=== PATIENT | male | born 1970 | race Caucasian/White ===

== ENCOUNTER 2020-03-04 14:22 | Emergency (ER) | payer SELFPAY ==
--- NOTE | 2020-03-04 14:37 | EDM.PDOC ---
<Marcos Geller - Last Filed: 03/04/20 18:15> ED HPI GENERAL MEDICAL PROBLEM - General Chief Complaint: Respiratory Problem Stated Complaint: COUGHING,COLD SYMPTOMS Time Seen by Provider: 03/04/20 14:33 - Related Data Allergies Allergy/AdvReac Type Severity Reaction Status Date / Time No Known Allergies Allergy Verified 03/04/20 14:50 Home Meds: Home Meds lisinopriL [Lisinopril] 10 mg PO DAILY 30 Days #30 tablet 03/04/20 [Rx] ED ROS GENERAL - Review of Systems Review Of Systems: See Below ED EXAM, GENERAL - Physical Exam Exam: See Below General Appearance: Alert Departure - Departure Time of Disposition: 17:31 Disposition: Home, Self-Care 01 Condition: Good Clinical Impression: COVID-19 - Discharge Information *PRESCRIPTION DRUG MONITORING PROGRAM REVIEWED*: No *COPY OF PRESCRIPTION DRUG MONITORING REPORT IN PATIENT ADELA: No Prescriptions: lisinopriL [Lisinopril] 10 mg PO DAILY 30 Days #30 tablet Instructions: COVID-19 Frequently Asked Questions, Prevent the Spread of COVID- 19 if You Are Sick - [facility] Referrals: PCP,None [Primary Care Provider] - Forms: ED Department Discharge Additional Instructions: The following information is given to patients seen in the emergency department who are being discharged to home. This information is to outline your options for follow-up care. We provide all patients seen in our emergency department with a follow-up referral. The need for follow-up, as well as the timing and circumstances, are variable depending upon the specifics of your emergency department visit. If you don't have a primary care physician on staff, we will provide you with a referral. We always advise you to contact your personal physician following an emergency department visit to inform them of the circumstance of the visit and for follow-up with them and/or the need for any referrals to a consulting specialist. The emergency department will also refer you to a specialist when appropriate. This referral assures that you have the opportunity for follow-up care with a specialist. All of these measure are taken in an effort to provide you with optimal care, which includes your follow-up. Under all circumstances we always encourage you to contact your private physician who remains a resource for coordinating your care. When calling for follow-up care, please make the office aware that this follow-up is from your recent emergency room visit. If for any reason you are refused follow-up, please contact the [facility] Emergency Department at and asked to speak to the emergency department charge nurse. Please follow up with your primary care physician. If you do not have a primary care physician, see below: [facility] [address] [place] [id number] [facility] [address] [place] [address] Please follow-up with your primary care physician. If you have any difficulty breathing tolerating full liquid please return to the ED. Please continue taking your blood pressure medications we provided you with a refill. <Lela Barajas E - Last Filed: 03/17/20 13:46> ED HPI GENERAL MEDICAL PROBLEM - General Source of Information: Reports: Patient History Limitations: Reports: No Limitations - History of Present Illness INITIAL COMMENTS - FREE TEXT/NARRATIVE: HISTORY AND PHYSICAL: History of present illness: Patient is a 49-year-old male who presents to the emergency room with complaints of shortness of breath, cough, body aches and sore throat. He states he has generally felt unwell for the past 2 to 3 weeks, he did have a COVID-19 screening done approximately a week ago. Most recently he was around his nephew who tested positive for COVID-19. He states he now has productive cough, shortness of breath and sore throat over the past 2 to 3 days. He states he is "coughing so hard it has pink stuff in it" he denies any austen blood. Review of systems: As per history of present illness and below otherwise all systems reviewed and negative. Past medical history: As per history of present illness and as reviewed below otherwise noncontributory. Surgical history: As per history of present illness and as reviewed below otherwise noncontributory. Social history: See social history for further information Family history: As per history of present illness and as reviewed below otherwise noncontributory. Physical exam: General: Well developed and well nourished. Alert and orientated x 3. Nontoxic in appearance and in no acute distress. Vital signs are stable and have been reviewed by me. Nursing notes were reviewed. HEENT: Atraumatic, normocephalic, pupils equal and reactive bilaterally, negative for conjunctival pallor or scleral icterus, mucous membranes moist, TMs normal bilaterally, throat clear, neck supple, nontender, trachea midline. No drooling or trismus noted. No meningeal signs. No hot potato voice noted. Lungs: Clear to auscultation, breath sounds equal bilaterally, chest nontender. Normal work of breathing, no accessory muscles used. Heart: S1S2, regular rate and rhythm without overt murmur Abdomen: Soft, nondistended, nontender. Negative for masses or hepatosplenomegaly. Negative for costovertebral tenderness. Pelvis: Stable nontender. Genitourinary: Deferred. Rectal: Deferred. Skin: Intact, warm, dry. No lesions or rashes noted. Hematologic: No petechiae or purpra. Mucosa appropriate color and normal nail bed color and refill. Extremities: Atraumatic, moves all extremities per self without difficulty or deficits, negative for cords or calf pain. Neurovascular unremarkable. Neuro: Awake, alert, oriented. Cranial nerves II through XII unremarkable. Ce rebellum unremarkable. Motor and sensory unremarkable throughout. Exam nonfocal. Psychiatric: Mood and affect are appropriate. Normal thought process. Answering questions appropriately. Notes: Chest x-ray shows an enlarged heart. Prominent lung markings bilaterally could be due to edema or pneumonitis including viral pneumonia. I have talked with the patient about today's findings, in addition to providing specific details for plan of care. Reassessment at the time of disposition demonstrates that the patient is in no acute distress. The patient is stable for discharge, counseling was provided and we discussed in great detail signs and symptoms that would prompt them to return to the Emergency Department. Medication, follow up and supportive care measures were reviewed and discussed. Voices understanding and is agreeable to plan of care. Denies any further questions or concerns at this time. Diagnostics: CBC, CMP, D.Dimer, troponin, EKG, chest x-ray, COVID-19 Impression: COVID-19 Definitive disposition and diagnosis as appropriate pending reevaluation and review of above. generalized Pain Score (Numeric/FACES): 6 Course - Vital Signs Last Recorded V/S: Last Vital Signs Temp 97.7 F 03/04/20 14:40 Pulse 87 03/04/20 17:50 Resp 18 03/04/20 17:50 BP 159/123 H 03/04/20 17:50 Pulse Ox 96 03/04/20 17:50 - Orders/Labs/Meds Labs: Laboratory Tests 03/04/20 03/04/20 03/04/20 Range/Units 15:27 15:27 15:27 WBC 7.01 (4.0-11.0) K/uL RBC 5.68 (4.50-5.90) M/uL Hgb 17.4 H (13.0-17.0) g/dL Hct 52.8 H (38.0-50.0) % MCV 93.0 (80.0-98.0) fL MCH 30.6 (27.0-32.0) pg MCHC 33.0 (31.0-37.0) g/dL RDW Std Deviation 45.5 (28.0-62.0) fl RDW Coeff of Mauricio 13 (11.0-15.0) % Plt Count 211 (150-400) K/uL MPV 10.70 (7.40-12.00) fL Neut % (Auto) 67.7 (48.0-80.0) % Lymph % (Auto) 23.0 (16.0-40.0) % [place] % (Auto) 7.3 (0.0-15.0) % Eos % (Auto) 1.3 (0.0-7.0) % Baso % (Auto) 0.7 (0.0-1.5) % Neut # (Auto) 4.8 (1.4-5.7) K/uL Lymph # (Auto) 1.6 (0.6-2.4) K/uL [place] # (Auto) 0.5 (0.0-0.8) K/uL Eos # (Auto) 0.1 (0.0-0.7) K/uL Baso # (Auto) 0.1 (0.0-0.1) K/uL Nucleated RBC % 0.0 /100WBC Nucleated RBCs # 0 K/uL D-Dimer, Quantitative 0.39 (0.0-0.50) mg/L FEU Sodium 140 (136-148) mmol/L Potassium 4.9 (3.5-5.1) mmol/L Chloride 104 (98-107) mmol/L Carbon Dioxide 28.3 (21.0-32.0) mmol/L BUN 19 H (7.0-18.0) mg/dL Creatinine 1.5 H (0.8-1.3) mg/dL Est Cr Clr Drug Dosing 60.23 mL/min Estimated GFR (MDRD) 49.9 ml/min Glucose 98 (74-106) mg/dL Calcium 8.8 (8.5-10.1) mg/dL Total Bilirubin 1.3 H (0.2-1.0) mg/dL AST 36 (15-37) IU/L ALT 45 (14-63) IU/L Alkaline Phosphatase 96 (46-116) U/L Troponin I < 0.050 (0.000-0.056) ng/mL Total Protein 7.4 (6.4-8.2) g/dL Albumin 3.1 L (3.4-5.0) g/dL Globulin 4.3 H (2.6-4.0) g/dL Albumin/Globulin Ratio 0.7 L (0.9-1.6) SARS-CoV-2 (PCR) (NOT DETECT) SARS CoV-2 RNA Rapid TRISTAN (NEGATIVE) 03/04/20 03/04/20 Range/Units 15:50 15:50 WBC (4.0-11.0) K/uL RBC (4.50-5.90) M/uL Hgb (13.0-17.0) g/dL Hct (38.0-50.0) % MCV (80.0-98.0) fL MCH (27.0-32.0) pg MCHC (31.0-37.0) g/dL RDW Std Deviation (28.0-62.0) fl RDW Coeff of Mauricio (11.0-15.0) % Plt Count (150-400) K/uL MPV (7.40-12.00) fL Neut % (Auto) (48.0-80.0) % Lymph % (Auto) (16.0-40.0) % [place] % (Auto) (0.0-15.0) % Eos % (Auto) (0.0-7.0) % Baso % (Auto) (0.0-1.5) % Neut # (Auto) (1.4-5.7) K/uL Lymph # (Auto) (0.6-2.4) K/uL [place] # (Auto) (0.0-0.8) K/uL Eos # (Auto) (0.0-0.7) K/uL Baso # (Auto) (0.0-0.1) K/uL Nucleated RBC % /100WBC Nucleated RBCs # K/uL D-Dimer, Quantitative (0.0-0.50) mg/L FEU Sodium (136-148) mmol/L Potassium (3.5-5.1) mmol/L Chloride (98-107) mmol/L Carbon Dioxide (21.0-32.0) mmol/L BUN (7.0-18.0) mg/dL Creatinine (0.8-1.3) mg/dL Est Cr Clr Drug Dosing mL/min Estimated GFR (MDRD) ml/min Glucose (74-106) mg/dL Calcium (8.5-10.1) mg/dL Total Bilirubin (0.2-1.0) mg/dL AST (15-37) IU/L ALT (14-63) IU/L Alkaline Phosphatase (46-116) U/L Troponin I (0.000-0.056) ng/mL Total Protein (6.4-8.2) g/dL Albumin (3.4-5.0) g/dL Globulin (2.6-4.0) g/dL Albumin/Globulin Ratio (0.9-1.6) SARS-CoV-2 (PCR) DETECTED H (NOT DETECT) SARS CoV-2 RNA Rapid TRISTAN POSITIVE H (NEGATIVE) Meds: Medications Discontinued Medications Generic Name Dose Route Start Last Admin Trade Name Freq PRN Reason Stop Dose Admin Aspirin 324 mg 03/04/20 14:55 03/04/20 15:07 Aspirin PO 03/04/20 14:56 324 mg ONETIME ONE Administration
[2020-03-04] MEDS ORDERED: Aspirin 81 MG Tab.Chew PO ONE (14:55)
--- NOTE | 2020-03-04 15:08 | PCM.SN.2 ---
- Free Text/Narrative Note: EKG Time 304pm Rate 84 NSR no MARTINA
--- NOTE | 2020-03-04 16:13 | CR ---
INDICATION: Chest pain and dyspnea COMPARISON: None TECHNIQUE: Single-view portable AP upright study FINDINGS: TUBES AND LINES: None. HEART AND MEDIASTINUM: The heart is mildly enlarged. LUNGS AND PLEURAL SPACES: Prominent lung markings bilaterally could be related to edema or could be due to pneumonitis including viral pneumonitis.No pleural effusion or pneumothorax. OSSEOUS STRUCTURES: Age-appropriate appearance. No acute focal finding. IMPRESSION: Enlarged heart. Prominent lung markings bilaterally could be due to edema or pneumonitis including viral pneumonia. Dictated by Dereck Levy MD @ Mar 04 2020 4:10PM Signed by Dr. Dereck Levy @ Mar 04 2020 4:11PM
[2020-03-04 16:16] LABS: BLOOD UREA NITROGEN,BUN 19 mg/dL (7.0-18.0); CARBON DIOXIDE,CO2 28.3 mmol/L (21.0-32.0); CHLORIDE,CL 104 mmol/L (98-107); GLUCOSE RANDOM 98 mg/dL (74-106); POTASSIUM,K 4.9 mmol/L (3.5-5.1); SODIUM,NA 140 mmol/L (136-148)
== END 2020-03-04 17:50 | disposition home or self-care (01) ==
LOC: MW.ED 14:22
DX: U07.1 COVID-19 (principal); Z79.899 Other long term (current) drug therapy
CPT/HCPCS: 36415; 71045; 80053; 84484; 85025; 85379; 87635; 93005; 99285; A9270; 93010; 99284; U0002

== ENCOUNTER 2020-04-02 14:54 | Emergency (ER) | payer SELFPAY ==
[2020-04-02] MEDS ORDERED: Sodium Chloride 0.9% 10 ML Syringe FLUSH PRN (14:56)
[2020-04-02] MEDS ORDERED: Sodium Chloride 0.9% 2.5 ML Syringe FLUSH PRN (14:56)
[2020-04-02] MEDS ORDERED: Furosemide 40 MG/4 ML VIAL IVPUSH ONE (15:30)
[2020-04-02 15:42] LABS: CARBON DIOXIDE,CO2 28.5 mmol/L (21.0-32.0)
[2020-04-02] MEDS ORDERED: Aspirin 325 MG Tab PO ONE (15:50)
--- NOTE | 2020-04-02 15:51 | CR ---
INDICATION: Chest pain and shortness of breath TECHNIQUE: Chest 1 views COMPARISON: March 04, 2020 FINDINGS: Cardiovascular and mediastinum: Stable cardiomegaly with new central pulmonary vascular congestion. Lungs and pleural spaces: Lungs are clear. No sign of infiltrate or mass. No sign of pleural effusion. No pneumothorax. Bones and soft tissues: No significant findings. IMPRESSION: CHF is suggested with moderate central edematous changes. Dictated by Baldev Butcher MD @ Apr 02 2020 3:47PM Signed by Dr. Baldev Butcher @ Apr 02 2020 3:49PM
--- NOTE | 2020-04-02 16:03 | PCM.SN.2 ---
- Free Text/Narrative Note: EGD done at 3:20 PM. Sinus rhythm heart rate 97 axis 27 IA 174 QT 458 transition R wave in the precordium compared to 03/04/2020 no change impression no acute injury
[2020-04-02] MEDS ORDERED: Enoxaparin 150 MG/1 ML Syringe SUBCUT ONE (16:12)
[2020-04-02] MEDS ORDERED: Heparin Sodium 5,000 Units/ML Vial IVPUSH ONE (16:16)
[2020-04-02] MEDS ORDERED: Heparin Sodium 5,000 Units/ML Vial ONE (16:19)
[2020-04-02] MEDS ORDERED: Heparin Sodium/0.45% NaCl 500 ML ONE (16:19)
--- NOTE | 2020-04-02 16:24 | EDM.PDOC ---
ED HPI GENERAL MEDICAL PROBLEM - General Chief Complaint: Abdominal Pain Stated Complaint: SOB Time Seen by Provider: 04/02/20 14:55 Source of Information: Reports: Patient History Limitations: Reports: No Limitations - History of Present Illness INITIAL COMMENTS - FREE TEXT/NARRATIVE: HISTORY AND PHYSICAL: History of present illness: Patient is a 50-year-old male who presents emergency room today from his primary care provider's office for concern of shortness of breath and bilateral lower leg edema. Patient states he also has some abdominal fullness sensation and some epigastric abdominal pain. I did speak to patient's primary care provider who sent him to the emergency room for further evaluation after her concern for possible surgical abdomen. Upon arrival, patient is speaking 2-3 word sentences with difficulties breathing. He does appear uncomfortable with breathing. States that 1 month ago he was diagnosed with Covid but has been clear by the state over the past several weeks after being quarantined at home. Patient states he did have shortness of breath with Covid but was having improvement of his symptoms and then over the course of the past 3 days has noticed bilateral lower extremity edema, worsening shortness of breath, and abdominal pain/distention. Patient states that he is unable to lay back without getting a "panic attack " and has not been able to lay back to sleep. Patient denies any health history and states he is not on any medications. Patient denies fever, chills, chest pain, or cough. Denies headache, neck stiff ness, change in vision, syncope, or near syncope. Denies nausea, vomiting, diarrhea, constipation, or dysuria. Has not noted any blood in urine or stool. Patient has been eating and drinking appropriately. Review of systems: As per history of present illness and below otherwise all systems reviewed and negative. Past medical history: As per history of present illness and as reviewed below otherwise noncon tributory. Surgical history: As per history of present illness and as reviewed below otherwise noncontributory. Social history: See social history for further information Family history: As per history of present illness and as reviewed below otherwise noncontributory. Physical exam: General: Patient is alert, oriented, and in no acute distress. Patient sitting on exam table, speaking 2-3 words with breathlessness. HEENT: Atraumatic, normocephalic, pupils equal and reactive bilaterally, negative for conjunctival pallor or scleral icterus, mucous membranes moist, TMs normal bilaterally, throat clear, neck supple, nontender, trachea midline. No drooling or trismus noted. No meningeal signs. No hot potato voice noted. Lungs: Patient speaking 2-3 words with breathlessness, no wheezing or stridor, coarse crackles heard throughout all lung valdes, using accessory muscle for inspiration. Heart: S1S2, regular rate and rhythm without overt murmur Abdomen: Soft, nondistended, nontender. Negative for masses or hepatosplenomegaly. Negative for costovertebral tenderness. Pelvis: Stable nontender. Genitourinary: Deferred. Rectal: Deferred. Skin: Intact, warm, dry. No lesions or rashes noted. Extremities: 2+ bilateral pitting edema to the knees. Otherwise, atraumatic, negative for cords or calf pain. Neurovascular unremarkable. Neuro: Awake, alert, oriented. Cranial nerves II through XII unremarkable. Cerebellum unremarkable. Motor and sensory unremarkable throughout. Exam nonfocal. Notes: Dr. Huerta verbally involved in patient care. See his official dictation for EKG interpretation. Patient is mildly tachycardic at 103 on exam with an increased respiratory rate of 22 but maintaining oxygen at 97%. He is speaking 2-3 word sentences with breathlessness and does appear uncomfortable with respiratory distress. I did call down to respiratory therapy to get BiPAP initiated immediately upon arrival. On reexamination of patient after BiPAP was initiated, he is much more comfo rtable stating that his symptoms are drastically improved. I did receive a call from the lab that they would not be able to complete the D- dimer at this time as they are fixing the analyzer. The asset availability leader is unsure how long the analyzer for ddimer will be down. However, patient's troponin did come back elevated and transfer arranged for NSTEMI with new onset CHF/acute respiratory failure prior to ddimer resulted. Dr. Alarcon, [facility], consulted on patent and accepting of transfer. Flight arranged. Voices understanding and is agreeable to plan of care. Denies any further questions or concerns at this time. Ddimer was noted to be elevated after patient was transferred to [facility]. I and nursing staff did call and speak to [facility], Dr. Neal's nurse and will fax the results to them in regards to the elevated ddimer. [facility] is made aware of elevated ddimer lab here today. Diagnostics: EKG, CBC, CMP, UA, chest x-ray, troponin, D-dimer, lipase, BNP, Therapeutics: Bipap, Lasix, Heparin GTT/bolus, ASA Impression: NSTEMI Acute respiratory failure Pulmonary edema Plan: Transfer to [facility] to Dr. Alarcon via Flight Definitive disposition and diagnosis as appropriate pending reevaluation and review of above. abdominal Pain Score (Numeric/FACES): 10 - Related Data Allergies Allergy/AdvReac Type Severity Reaction Status Date / Time No Known Allergies Allergy Verified 04/02/20 15:10 Home Meds: Home Meds lisinopriL [Lisinopril] 10 mg PO DAILY 30 Days #30 tablet 03/04/20 [Rx] Past Medical History Cardiovascular History: Reports: Hypertension Genitourinary History: Reports: None - Infectious Disease History Infectious Disease History: Reports: Chicken Pox - Past Surgical History Cardiovascular Surgical History: Reports: None Male Surgical History: Reports: Vasectomy Social & Family History - Family History Family Medical History: Unobtainable - Tobacco Use Tobacco Use Status *Q: Former Tobacco User Used Tobacco, but Quit: Yes Month/Year Tobacco Last Used: "3months ago" - Caffeine Use Caffeine Use: Reports: None - Recreational Drug Use Recreational Drug Use: No ED ROS GENERAL - Review of Systems Review Of Systems: Comprehensive ROS is negative, except as noted in HPI. ED EXAM, GENERAL - Physical Exam Exam: See Below (see dictation) Course - Vital Signs Last Recorded V/S: Last Vital Signs Temp 96.5 F L 04/02/20 15:01 Pulse 101 H 04/02/20 17:00 Resp 22 H 04/02/20 15:01 BP 161/134 H 04/02/20 17:00 Pulse Ox 98 04/02/20 17:00 - Orders/Labs/Meds Orders: Active Orders 24 hr Category Date Time Status UA RFX SANIA AND CULT IF INDIC [URIN] Stat Lab 04/02/20 14:56 Ordered Saline Lock Insert [OM.PC] Stat Oth 04/02/20 14:56 Ordered Labs: Laboratory Tests 04/02/20 04/02/20 04/02/20 Range/Units 15:12 15:12 15:12 WBC 10.23 (4.0-11.0) K/uL RBC 5.61 (4.50-5.90) M/uL Hgb 17.3 H (13.0-17.0) g/dL Hct 52.6 H (38.0-50.0) % MCV 93.8 (80.0-98.0) fL MCH 30.8 (27.0-32.0) pg MCHC 32.9 (31.0-37.0) g/dL RDW Std Deviation 47.3 (28.0-62.0) fl RDW Coeff of Mauricio 14 (11.0-15.0) % Plt Count 273 (150-400) K/uL MPV 10.80 (7.40-12.00) fL Neut % (Auto) 62.3 (48.0-80.0) % Lymph % (Auto) 28.6 (16.0-40.0) % [place] % (Auto) 6.2 (0.0-15.0) % Eos % (Auto) 2.2 (0.0-7.0) % Baso % (Auto) 0.7 (0.0-1.5) % Neut # (Auto) 6.4 H (1.4-5.7) K/uL Lymph # (Auto) 2.9 H (0.6-2.4) K/uL [place] # (Auto) 0.6 (0.0-0.8) K/uL Eos # (Auto) 0.2 (0.0-0.7) K/uL Baso # (Auto) 0.1 (0.0-0.1) K/uL Nucleated RBC % 0.0 /100WBC Nucleated RBCs # 0 K/uL APTT (18.6-31.3) SEC D-Dimer, Quantitative (0.0-0.50) mg/L FEU VBG pH (7.31-7.41) VBG pCO2 (35-45) mmHG VBG pO2 (30-40) mmHG VBG HCO3 (22-30) mEq/L VBG Total CO2 (41-51) mmol/L VBG Base Excess (-3.0-3.0) Sodium 141 (136-148) mmol/L Potassium 5.0 (3.5-5.1) mmol/L Chloride 104 (98-107) mmol/L Carbon Dioxide 28.5 (21.0-32.0) mmol/L BUN 27 H (7.0-18.0) mg/dL Creatinine 2.0 H (0.8-1.3) mg/dL Est Cr Clr Drug Dosing 44.68 mL/min Estimated GFR (MDRD) 35.7 ml/min Glucose 116 H (74-106) mg/dL Calcium 9.4 (8.5-10.1) mg/dL Total Bilirubin 1.3 H (0.2-1.0) mg/dL AST 29 (15-37) IU/L ALT 46 (14-63) IU/L Alkaline Phosphatase 83 (46-116) U/L Troponin I 0.081 H* (0.000-0.056) ng/mL B-Natriuretic Peptide (<100) PG/ML Total Protein 6.9 (6.4-8.2) g/dL Albumin 3.2 L (3.4-5.0) g/dL Globulin 3.7 (2.6-4.0) g/dL Albumin/Globulin Ratio 0.9 (0.9-1.6) Lipase 61 L (73-393) U/L 04/02/20 04/02/20 04/02/20 Range/Units 15:12 15:12 15:12 WBC (4.0-11.0) K/uL RBC (4.50-5.90) M/uL Hgb (13.0-17.0) g/dL Hct (38.0-50.0) % MCV (80.0-98.0) fL MCH (27.0-32.0) pg MCHC (31.0-37.0) g/dL RDW Std Deviation (28.0-62.0) fl RDW Coeff of Mauricio (11.0-15.0) % Plt Count (150-400) K/uL MPV (7.40-12.00) fL Neut % (Auto) (48.0-80.0) % Lymph % (Auto) (16.0-40.0) % [place] % (Auto) (0.0-15.0) % Eos % (Auto) (0.0-7.0) % Baso % (Auto) (0.0-1.5) % Neut # (Auto) (1.4-5.7) K/uL Lymph # (Auto) (0.6-2.4) K/uL [place] # (Auto) (0.0-0.8) K/uL Eos # (Auto) (0.0-0.7) K/uL Baso # (Auto) (0.0-0.1) K/uL Nucleated RBC % /100WBC Nucleated RBCs # K/uL APTT 26.0 (18.6-31.3) SEC D-Dimer, Quantitative 2.64 H (0.0-0.50) mg/L FEU VBG pH (7.31-7.41) VBG pCO2 (35-45) mmHG VBG pO2 (30-40) mmHG VBG HCO3 (22-30) mEq/L VBG Total CO2 (41-51) mmol/L VBG Base Excess (-3.0-3.0) Sodium (136-148) mmol/L Potassium (3.5-5.1) mmol/L Chloride (98-107) mmol/L Carbon Dioxide (21.0-32.0) mmol/L BUN (7.0-18.0) mg/dL Creatinine (0.8-1.3) mg/dL Est Cr Clr Drug Dosing mL/min Estimated GFR (MDRD) ml/min Glucose (74-106) mg/dL Calcium (8.5-10.1) mg/dL Total Bilirubin (0.2-1.0) mg/dL AST (15-37) IU/L ALT (14-63) IU/L Alkaline Phosphatase (46-116) U/L Troponin I (0.000-0.056) ng/mL B-Natriuretic Peptide 1763 H (<100) PG/ML Total Protein (6.4-8.2) g/dL Albumin (3.4-5.0) g/dL Globulin (2.6-4.0) g/dL Albumin/Globulin Ratio (0.9-1.6) Lipase (73-393) U/L 04/02/20 Range/Units 15:43 WBC (4.0-11.0) K/uL RBC (4.50-5.90) M/uL Hgb (13.0-17.0) g/dL Hct (38.0-50.0) % MCV (80.0-98.0) fL MCH (27.0-32.0) pg MCHC (31.0-37.0) g/dL RDW Std Deviation (28.0-62.0) fl RDW Coeff of Mauricio (11.0-15.0) % Plt Count (150-400) K/uL MPV (7.40-12.00) fL Neut % (Auto) (48.0-80.0) % Lymph % (Auto) (16.0-40.0) % [place] % (Auto) (0.0-15.0) % Eos % (Auto) (0.0-7.0) % Baso % (Auto) (0.0-1.5) % Neut # (Auto) (1.4-5.7) K/uL Lymph # (Auto) (0.6-2.4) K/uL [place] # (Auto) (0.0-0.8) K/uL Eos # (Auto) (0.0-0.7) K/uL Baso # (Auto) (0.0-0.1) K/uL Nucleated RBC % /100WBC Nucleated RBCs # K/uL APTT (18.6-31.3) SEC D-Dimer, Quantitative (0.0-0.50) mg/L FEU VBG pH 7.33 (7.31-7.41) VBG pCO2 53 H (35-45) mmHG VBG pO2 25 L (30-40) mmHG VBG HCO3 28 (22-30) mEq/L VBG Total CO2 25 L (41-51) mmol/L VBG Base Excess 0.9 (-3.0-3.0) Sodium (136-148) mmol/L Potassium (3.5-5.1) mmol/L Chloride (98-107) mmol/L Carbon Dioxide (21.0-32.0) mmol/L BUN (7.0-18.0) mg/dL Creatinine (0.8-1.3) mg/dL Est Cr Clr Drug Dosing mL/min Estimated GFR (MDRD) ml/min Glucose (74-106) mg/dL Calcium (8.5-10.1) mg/dL Total Bilirubin (0.2-1.0) mg/dL AST (15-37) IU/L ALT (14-63) IU/L Alkaline Phosphatase (46-116) U/L Troponin I (0.000-0.056) ng/mL B-Natriuretic Peptide (<100) PG/ML Total Protein (6.4-8.2) g/dL Albumin (3.4-5.0) g/dL Globulin (2.6-4.0) g/dL Albumin/Globulin Ratio (0.9-1.6) Lipase (73-393) U/L Meds: Medications Discontinued Medications Generic Name Dose Route Start Last Admin Trade Name Freq PRN Reason Stop Dose Admin Aspirin 325 mg 04/02/20 15:50 04/02/20 16:23 Aspirin PO 04/02/20 15:51 325 mg ONETIME ONE Administration Enoxaparin Sodium 112 mg 04/02/20 16:12 04/02/20 16:38 Lovenox SUBCUT 04/02/20 16:13 Not Given ONETIME ONE Furosemide 40 mg 04/02/20 15:30 04/02/20 15:49 Lasix IVPUSH 04/02/20 15:31 40 mg NOW ONE Administration Heparin Sodium (Porcine) 0 units 04/02/20 16:16 04/02/20 16:23 Heparin Sodium IVPUSH 04/02/20 16:17 4,000 units .BOLUS ONE Administration Protocol Heparin Sodium (Porcine) Confirm 04/02/20 16:19 04/02/20 16:38 Heparin Sodium Administered 04/02/20 16:20 Not Given Dose 5,000 units .ROUTE .STK-MED ONE Heparin Sodium/Sodium Chloride 500 mls @ 26.88 mls/hr 04/02/20 16:30 04/02/20 16:25 Heparin 25,000 Units In 1/2 Ns 500 Ml IV 12 units/kg/hr TITRATE DORYS 26.88 mls/hr Administration Protocol 12 UNITS/KG/HR Heparin Sodium/Sodium Chloride Confirm 04/02/20 16:19 04/02/20 16:28 Heparin 25,000 Units In 1/2 Ns 500 Ml Administered 04/02/20 16:20 Not Given Dose 500 mls @ as directed .ROUTE .STK-MED ONE Sodium Chloride 10 ml 04/02/20 14:56 04/02/20 15:50 Saline Flush FLUSH 10 ml ASDIRECTED PRN Administration Keep Vein Open Sodium Chloride 2.5 ml 04/02/20 14:56 04/02/20 15:49 Saline Flush FLUSH 2.5 ml ASDIRECTED PRN Administration Keep Vein Open Departure - Departure Time of Disposition: 16:24 Disposition: DC/Tfer to [facility] 02 Clinical Impression: Non-ST elevation CO (NSTEMI) Acute respiratory failure Qualifiers: Respiratory failure complication: hypercapnia Qualified Code(s): J96.02 - Acute respiratory failure with hypercapnia Pulmonary edema Qualifiers: Chronicity: acute Qualified Code(s): J81.0 - Acute pulmonary edema - Discharge Information Referrals: PCP,None [Primary Care Provider] - Forms: ED Department Discharge Sepsis Event Note (ED) - Evaluation Sepsis Screening Result: No Definite Risk - Focused Exam Vital Signs: Vital Signs Temp Pulse Resp BP Pulse Ox 04/02/20 17:00 101 H 161/134 H 98 04/02/20 16:40 102 H 100 04/02/20 16:34 166/131 H 100 04/02/20 15:38 164/127 H 97 04/02/20 15:01 96.5 F L 103 H 22 H 163/126 H 97 - My Orders Last 24 Hours: My Active Orders 04/02/20 14:56 UA RFX SANIA AND CULT IF INDIC [URIN] Stat Saline Lock Insert [OM.PC] Stat - Assessment/Plan Last 24 Hours: My Active Orders 04/02/20 14:56 UA RFX SANIA AND CULT IF INDIC [URIN] Stat Saline Lock Insert [OM.PC] Stat
[2020-04-02] MEDS ORDERED: Heparin Sodium/0.45% NaCl 500 ML IV SCH (16:30)
== END 2020-04-02 17:21 ==
LOC: MW.ED 14:54
DX: I21.4 Non-ST elevation (NSTEMI) myocardial infarction (principal); J81.0 Acute pulmonary edema; J96.02 Acute respiratory failure with hypercapnia; I10 Essential (primary) hypertension; Z79.899 Other long term (current) drug therapy; Z87.891 Personal history of nicotine dependence
CPT/HCPCS: 36415; 71045; 80053; 82803; 83690; 83880; 84484; 85025; 85379; 85730; 93005; 94660; 96365; 96375; 99285; A9270; J1644; J1940; 93010

== ENCOUNTER 2021-06-22 16:29 | Emergency (ER) | payer MEDICAID ==
[2021-06-22] MEDS ORDERED: Sodium Chloride 0.9% 1,000 ML IV ONE ×2 (16:58→23:11)
[2021-06-22 17:32] LABS: BLOOD UREA NITROGEN,BUN 44 mg/dL (7.0-18.0); CARBON DIOXIDE,CO2 24.9 mmol/L (21.0-32.0); CHLORIDE,CL 102 mmol/L (98-107); GLUCOSE RANDOM 110 mg/dL (74-106); POTASSIUM,K 4.9 mmol/L (3.5-5.1); SODIUM,NA 139 mmol/L (136-148)
[2021-06-22] MEDS ORDERED: Enoxaparin 150 MG/1 ML Syringe SUBCUT STA (20:12)
== END 2021-06-23 01:20 ==
LOC: MW.ED 16:29
DX: N17.9 Acute kidney failure, unspecified (principal); N28.89 Other specified disorders of kidney and ureter; I82.3 Embolism and thrombosis of renal vein; I82.220 Acute embolism and thrombosis of inferior vena cava; I10 Essential (primary) hypertension; Z86.16 Personal history of COVID-19; Z20.822 Contact with and (suspected) exposure to COVID-19
CPT/HCPCS: 36415; 71045; 74176; 80053; 81001; 83735; 83880; 84484; 85025; 85610; 85730; 87635; 93005; 96372; 99285; J1650; J7030; 93010; U0002

== ENCOUNTER 2021-12-07 15:48 | Emergency (ER) | payer MEDICAID ==
[2021-12-07] MEDS ORDERED: fentaNYL 50 MCG/ML SDV IVPUSH ONE (17:18)
[2021-12-07] MEDS ORDERED: Sodium Chloride 0.9% 1,000 ML IV ONE ×2 (17:18→17:22)
[2021-12-07] MEDS ORDERED: Sodium Chloride 0.9% 10 ML Syringe FLUSH PRN (17:18)
[2021-12-07] MEDS ORDERED: cefTRIAXone 1 GM in Sodium Chloride 0.9% 50 ML IV ONE (17:18)
[2021-12-07] MEDS ORDERED: Sodium Chloride 0.9% 2.5 ML Syringe FLUSH PRN (17:18)
[2021-12-07] MEDS ORDERED: diphenhydrAMINE 50 MG/ML SDV IVPUSH ONE (17:21)
[2021-12-07] MEDS ORDERED: Prochlorperazine 10 MG/2 ML SDV IVPUSH ONE (17:21)
[2021-12-07 18:30] LABS: CARBON DIOXIDE,CO2 24.7 mmol/L (21.0-32.0); POTASSIUM,K 5.4 mmol/L (3.5-5.1)
== END 2021-12-07 20:20 | disposition home or self-care (01) ==
LOC: MW.ED 15:48
DX: E86.0 Dehydration (principal); K04.7 Periapical abscess without sinus; I11.0 Hypertensive heart disease with heart failure; I50.9 Heart failure, unspecified; I25.2 Old myocardial infarction; K21.9 Gastro-esophageal reflux disease without esophagitis; Z79.899 Other long term (current) drug therapy; Z79.01 Long term (current) use of anticoagulants; Z86.16 Personal history of COVID-19
CPT/HCPCS: 36415; 80053; 85025; 96374; 96375; 99284; J0696; J0780; J1200; J3010; J3490; J7030

== ENCOUNTER 2022-06-07 17:43 | Observation (INO) | payer MEDICAID ==
[2022-06-07] MEDS ORDERED: Calcium Gluconate 10% 1 GM/10 ML SDV IVPUSH ONE (18:24)
[2022-06-07] MEDS ORDERED: Glucagon,Human Recombinant 1 MG Vial IM PRN (18:40)
[2022-06-07] MEDS ORDERED: Insulin Regular, Human 100 Units/ML 10 ML Vial IVPUSH ONE (18:40)
[2022-06-07] MEDS ORDERED: 50% Dextrose in Water 50 ML Syringe IVPUSH PRN (18:40)
[2022-06-07] MEDS ORDERED: 50% Dextrose in Water 50 ML Syringe IVPUSH ONE (18:40)
[2022-06-07] MEDS ORDERED: Sodium Polystyrene Sulfonate 15 GM/60 ML Susp 60 ML Bot PO ONE (18:43)
[2022-06-07] MEDS ORDERED: Magnesium Sulfate (4.06 MEQ/ML) 1 GM/2 ML SDV IV ONE (18:47)
[2022-06-07] MEDS: Magnesium Sulfate (4.06 MEQ/ML) 5 GM/10 ML SDV IV ONE ×2 (18:54→19:50)
[2022-06-07 19:40] LABS: CARBON DIOXIDE,CO2 24.8 mmol/L (21.0-32.0); POTASSIUM,K 6.4 mmol/L (3.5-5.1)
[2022-06-07] MEDS ORDERED: Ondansetron 4 MG/2 ML SDV IVPUSH STA (20:04)
[2022-06-07] MEDS ORDERED: Ondansetron 4 MG/2 ML SDV ONE (20:05)
[2022-06-07] MEDS: Ondansetron 4 MG/2 ML SDV IVPUSH ONE (20:08)
[2022-06-07] MEDS ORDERED: Acetaminophen/HYDROcodone 325-5 MG Tab PO ONE (22:10)
[2022-06-07 22:12] LABS: CARBON DIOXIDE,CO2 22.6 mmol/L (21.0-32.0); POTASSIUM,K 5.7 mmol/L (3.5-5.1)
[2022-06-07] MEDS ORDERED: Lactated Ringers 1,000 ML IV SCH (23:30)
[2022-06-07] MEDS ORDERED: Dextrose 5%-0.9% NaCl 1,000 ML IV SCH (23:45)
[2022-06-08] MEDS: Ondansetron 4 MG/2 ML SDV IVPUSH ONE (00:37)
[2022-06-08 07:10] LABS: CARBON DIOXIDE,CO2 22.9 mmol/L (21.0-32.0); POTASSIUM,K 5.3 mmol/L (3.5-5.1)
[2022-06-08] MEDS ORDERED: Ondansetron 4 MG/2 ML SDV IVPUSH PRN (08:24)
== END 2022-06-08 11:45 | disposition home or self-care (01) ==
LOC: MW.ED 17:43 → MW.MS 23:29
PROVIDERS: ADMIT Internal Medicine; ATTEND Internal Medicine
DX: E87.5 Hyperkalemia (principal); N17.9 Acute kidney failure, unspecified; I48.91 Unspecified atrial fibrillation; I11.0 Hypertensive heart disease with heart failure; I50.9 Heart failure, unspecified; I25.2 Old myocardial infarction; K21.9 Gastro-esophageal reflux disease without esophagitis; F32.A Depression, unspecified; Z79.899 Other long term (current) drug therapy; Z79.01 Long term (current) use of anticoagulants; Z86.16 Personal history of COVID-19; Z98.890 Other specified postprocedural states; Z20.822 Contact with and (suspected) exposure to COVID-19
CPT/HCPCS: 36415; 80048; 80053; 82803; 82947; 83735; 84100; 84484; 84550; 85025; 93005; 93010; 96361; 96365; 96375; 96376; 99285; 99285-25; A9270-GY; G0378; J0610; J1815-GY; J2405; J3475; J3490; J7042; J7120; U0002

== ENCOUNTER 2023-08-25 20:40 | Observation (INO) | payer MEDICAID, OTHER ==
[2023-08-25 20:55] LABS: BASE EXCESS VENOUS -9.5 (-2.0-3.0); BASOPHILS ABSOLUTE AUTO 0.02 K/uL (0.00-0.20); BASOPHILS PERCENT AUTO 0.1 % (0.0-1.0); EOSINOPHILS ABSOLUTE AUTO 0.01 K/uL (0.00-0.45); EOSINOPHILS PERCENT AUTO 0.1 % (0.0-6.0); HEMATOCRIT 20.5 % (42.0-52.0); HEMOGLOBIN 6.3 g/dL (14.0-18.0); IMMATURE GRAN ABSOLUTE AUTO 0.18 K/uL (0.00-0.05); LYMPHOCYTES ABSOLUTE AUTO 0.29 K/uL (1.00-4.80); LYMPHOCYTES PERCENT AUTO 1.6 % (24.0-44.0); MEAN CORPUSCULAR HEMOGLOBIN 25.8 pg (28.0-32.0); MEAN CORPUSCULAR HGB CONC 30.7 g/dL (32.0-36.0); MEAN PLATELET VOLUME 9.4 fL (9.4-12.4); MONOCYTES ABSOLUTE AUTO 0.51 K/uL (0.00-0.80); MONOCYTES PERCENT AUTO 2.8 % (0.0-8.0); NEUTROPHILS ABSOLUTE AUTO 17.05 K/uL (1.80-7.70); NEUTROPHILS PERCENT AUTO 94.4 % (41.0-71.0); NRBC ABSOLUTE 0.02 K/uL (0.00-0.02); NRBC PERCENT 0.1 /100WBC (0.0-0.2); PH,VENOUS 7.33 (7.31-7.41); PLATELET COUNT,PLT 262 K/uL (150-400); RED BLOOD CELL COUNT 2.44 M/uL (4.52-5.90); WHITE BLOOD CELL COUNT,WBC 18.06 K/uL (3.9-11.3)
[2023-08-25] MEDS: Pantoprazole 80 MG in Sodium Chloride 0.9% 10 ML IVPUSH ONE (20:58)
[2023-08-25] MEDS: Sodium Chloride 0.9% 10 ML Syringe FLUSH PRN (20:59)
[2023-08-25] MEDS: Albuterol/Ipratropium 3.0-0.5 MG/3 ML Neb Soln NEB ONE (20:59)
[2023-08-25] MEDS: Sodium Chloride 0.9% 2.5 ML Syringe FLUSH PRN (20:59)
[2023-08-25] MEDS: Sodium Chloride 0.9% 500 ML IV ONE (20:59)
[2023-08-25] MEDS: Ondansetron 4 MG/2 ML SDV IVPUSH ONE (20:59)
[2023-08-25 21:20] LABS: LACTIC ACID 2.9 mmol/L (0.4-2.0)
[2023-08-25] MEDS: Cefepime 2 GM in Sodium Chloride 0.9% 50 ML IV ONE (21:28)
[2023-08-25 21:30] LABS: INR > 8.00 (0.86-1.11); PTT,PARTIAL THROMBOPLSTIN TIME > 139.0 SEC (23.9-30.7)
[2023-08-25 21:31] LABS: A/G RATIO 0.3 (0.9-1.6); ALANINE AMINOTRANSFERASE,ALT 21 IU/L (14-63); ALBUMIN 1.2 g/dL (3.4-5.0); ALKALINE PHOSPHATASE 243 U/L (46-116); ASPARTATE AMNIOTRANSFERASE,AST 40 IU/L (15-37); BILIRUBIN TOTAL 1.3 mg/dL (0.2-1.0); CALCIUM 6.9 mg/dL (8.5-10.1); CARBON DIOXIDE,CO2 13.6 mmol/L (21.0-32.0); CHLORIDE,CL 97 mmol/L (98-107); CREATINE KINASE,CK 184 U/L (26-308); CREATININE 9.6 mg/dL (0.8-1.3); ETHANOL BLOOD MEDICAL <3 mg/dL; GLUCOSE RANDOM 93 mg/dL (74-106); LIPASE 16 U/L (16-77); POTASSIUM,K 6.1 mmol/L (3.5-5.1); PROTEIN TOTAL,TP 5.7 g/dL (6.4-8.2); SODIUM,NA 132 mmol/L (136-148)
[2023-08-25 21:40] LABS: ESTIMATED GFR 6 mL/min (>60)
[2023-08-25 21:53] LABS: BLOOD UREA NITROGEN,BUN 184 mg/dL (7.0-18.0)
[2023-08-25] MEDS: Sodium Bicarbonate 8.4% 50 MEQ/50 ML Syringe IVPUSH ONE (21:57)
[2023-08-25] MEDS: Calcium Gluconate 10% 1 GM/10 ML SDV IVPUSH ONE (21:58)
[2023-08-25] MEDS: Lidocaine 1% with EPINEPHrine 1:200,000 30 ML SDV INFILT STA (21:58)
[2023-08-25] MEDS: Sodium Bicarbonate 150 MEQ in Dextrose 5% in Water 1,000 ML IV ONE (22:10)
[2023-08-25] MEDS: Morphine 2 MG/ML SYRINGE IVPUSH ONE (22:16)
[2023-08-25] MEDS ORDERED: Acetaminophen 325 MG Tab PO PRN (22:20)
[2023-08-25] MEDS ORDERED: Sennosides/Docusate Sodium 50-8.6 MG Tab PO PRN (22:20)
[2023-08-25] MEDS ORDERED: Atropine 1% Ophth Soln 5 ML Bottle SL PRN (22:20)
[2023-08-25] MEDS ORDERED: Morphine 4 MG/ML Syringe IV PRN (22:20)
[2023-08-25] MEDS ORDERED: Acetaminophen 650 MG Supp RECTAL PRN (22:20)
[2023-08-25] MEDS ORDERED: Baclofen 10 MG Tab PO PRN (22:20)
[2023-08-25] MEDS ORDERED: Naloxone 0.4 MG/ML SDV IVPUSH PRN (22:23)
[2023-08-25 22:27] LABS: CORONAVIRUS COVID-19 NAA NEGATIVE (NEGATIVE); INFLUENZA A NAA NEGATIVE (NEGATIVE); INFLUENZA B NAA NEGATIVE (NEGATIVE); RESPIRATORY SYNCYTIAL VIR NAA NEGATIVE (NEGATIVE)
[2023-08-25] MEDS: Ondansetron 4 MG/2 ML SDV IVPUSH PRN (23:00)
[2023-08-25] MEDS: Morphine 2 MG/ML SYRINGE IV PRN (23:36)
[2023-08-26] MEDS: LORazepam ORAL Concentrate 1MG/0.5ML U/D PO PRN (02:53)
[2023-08-26] MEDS: Morphine 4 MG/ML Syringe IVPUSH PRN (11:26)
[2023-08-26] MEDS: chlorproMAZINE 50 MG/2 ML Amp IM PRN (12:26)
== END 2023-08-27 02:35 | disposition expired ==
LOC: MW.ED 20:40 → MW.MS 22:08
PROVIDERS: ADMIT Family Medicine; ATTEND Family Medicine
DX: C64.9 Malignant neoplasm of unspecified kidney, except renal pelvis (principal); N17.8 Other acute kidney failure; I13.0 Hypertensive heart and chronic kidney disease with heart failure and stage 1 through stage 4 chronic kidney disease, or unspecified chronic kidney disease; N18.4 Chronic kidney disease, stage 4 (severe); I50.9 Heart failure, unspecified; E87.5 Hyperkalemia; R57.9 Shock, unspecified; D62 Acute posthemorrhagic anemia; K21.9 Gastro-esophageal reflux disease without esophagitis; F32.A Depression, unspecified; I48.91 Unspecified atrial fibrillation; Z79.01 Long term (current) use of anticoagulants; Z79.899 Other long term (current) drug therapy
CPT/HCPCS: 0241U; 36415; 71045; 80053; 80307; 82140; 82550; 82803; 83605; 83690; 84484; 85025; 85610; 85730; 86850; 86900; 86901; 86920; 87040; 93005; 94640; 96365; 96375; 96376; 99291; A9270; C9113; J0692; J2270; J2405; J3230; J3490; J7040; 93010; 96372; G0378; J0612; J7620-GY